=== PATIENT | male | born 1990 | race Caucasian/White ===

== ENCOUNTER 2021-09-20 10:53 | Outpatient (CLI) | payer OTHER ==
--- NOTE | 2021-09-20 13:47 | MRI Report ---
PROCEDURE: Lumbar Spine W/O INDICATIONS: SCIATICA TECHNIQUE: Noncontrast sagittal T1 spin echo and T2 fast echo, sagittal STIR, axial T1 and T2 fast spin echo thr ough the lumbar spine. In cases with scoliosis, additional coronal T2 fast spin echo may be performe d. COMPARISON: None. FINDINGS: At L5-S1, there is disc desiccation and disc height loss with a posterior annular fissure of the disc in the left subarticular and foraminal zones. Discogenic marrow edema at the opposing endplates with an associated Schmorl node. A diffuse disc bulge and superimposed protrusion in the left paracentral , subarticular, and foraminal zones causing displacement of the descending left S1 nerve root and mil d left neural foraminal narrowing with abutment of the exiting left L5 nerve root. From T12-L1 through L4-L5, no significant degenerative changes. Preserved disc hydration and height a t these levels with no disc herniation, spinal canal stenosis, neural foraminal stenosis, or evidence of focal nerve root impingement. Normal vertebral body height and alignment. Normal position and appearance of the conus. Regional sof t tissues are normal. IMPRESSION: Degenerative changes at L5-S1, with discogenic marrow edema at the opposing endplates (a potential so urce of nonradicular axial back pain), and a disc protrusion producing mild left subarticular and for aminal zone stenosis. Correlate for corresponding left L5 or S1 radicular symptoms. Reviewed by: Samir Simental MD on 09/20/2021 1:45 PM PST Approved by: Samir Simental MD on 09/20/2021 1:45 PM PST Station ID: [id number]
== END 2021-09-20 10:54 | disposition home or self-care (01) ==
LOC: DI 10:53 → EDBD 11:00
DX: M51.17 Intervertebral disc disorders with radiculopathy, lumbosacral region (principal); M51.47 Schmorl's nodes, lumbosacral region; R93.7 Abnormal findings on diagnostic imaging of other parts of musculoskeletal system; M48.07 Spinal stenosis, lumbosacral region